=== PATIENT | female | born 1945 | race Caucasian/White ===

== ENCOUNTER 2025-02-23 18:12 | Inpatient (IN) | payer MEDICARE ==
[~2025-02-23] VITALS: Ht 152.4 cm; Wt 30.1 kg
[2025-02-23 19:28] LABS: PLATELET COUNT (AUTO) 214 K/uL (179-408); RED BLOOD CELL COUNT(AUTO) 3.51 MIL/uL (3.63-4.92); RED CELL DISTRIBUTION WIDTH 14.0 % (12.3-17.7); WHITE BLOOD COUNT (AUTO) 7.8 K/uL (3.8-11.8)
[2025-02-23] MEDS ORDERED: ASPI81TA31 PO (19:36)
[2025-02-23] MEDS ORDERED: QUET50TA PO (19:36)
[2025-02-23] MEDS ORDERED: HYDR-501 PO (19:36)
[2025-02-23] MEDS ORDERED: OLAN5TAB70 PO (19:36)
[2025-02-23] MEDS ORDERED: IBUP-1955 PO (19:36)
[2025-02-23] MEDS ORDERED: ATOR20TA PO (19:36)
[2025-02-23] MEDS ORDERED: TEMA15CA PO (19:36)
[2025-02-23 19:38] LABS: CREATININE 0.9 mg/dL (0.6-1.3); SODIUM SERUM 144 mmol/L (136-145); UREA NITROGEN, BLOOD 27 mg/dL (7-18)
[2025-02-23 19:44] LABS: ASPARTATE AMINOTRANSFERASE 18 U/L (15-37); TOTAL PROTEIN, SERUM 6.6 g/dL (6.4-8.2)
[2025-02-23] MEDS ORDERED: diphenhydrAMINE 50 MG/1 ML VIAL IM ONE (21:15)
[2025-02-23] MEDS ORDERED: OLANZAPINE 10 MG VIAL IM ONE ×2 (21:15→21:22)
[2025-02-23] MEDS ORDERED: diphenhydrAMINE 50 MG/1 ML VIAL ONE (21:21)
[2025-02-23] MEDS: diphenhydrAMINE 50 MG/1 ML VIAL IV ONE (21:31)
[2025-02-23] MEDS ORDERED: HALOPERIDOL LACTATE 5 MG/1 ML VIAL ONE (21:35)
[2025-02-23] MEDS: HALOPERIDOL LACTATE 5 MG/1 ML VIAL IV ONE (21:37)
[2025-02-23] MEDS ORDERED: MAGNESIUM HYDROXIDE 30 ML LIQUID UDC PO PRN (22:45)
[2025-02-23] MEDS ORDERED: TEMAZEPAM 15 MG CAPSULE PO PRN (22:45)
[2025-02-23] MEDS ORDERED: QUETIAPINE FUMARATE 25 MG TABLET ONE (23:57)
[2025-02-24] MEDS ORDERED: LORAZEPAM 2 MG/1 ML VIAL ONE (00:18)
[2025-02-24] MEDS ORDERED: HALOPERIDOL LACTATE 5 MG/1 ML VIAL ONE (00:23)
[2025-02-24] MEDS: LORAZEPAM 2 MG/1 ML VIAL IV ONE (00:30)
[2025-02-24] MEDS: HALOPERIDOL LACTATE 5 MG/1 ML VIAL IV ONE (00:30)
[2025-02-24 06:00] VITALS: BP 140/76
[2025-02-24 07:30] LABS: PLATELET COUNT (AUTO) 252 K/uL (179-408); RED BLOOD CELL COUNT(AUTO) 4.16 MIL/uL (3.63-4.92); RED CELL DISTRIBUTION WIDTH 13.8 % (12.3-17.7); WHITE BLOOD COUNT (AUTO) 12.7 K/uL (3.8-11.8)
[2025-02-24 07:53] LABS: IRON, SERUM 47 ug/dL (50-175)
[2025-02-24 08:11] LABS: ASPARTATE AMINOTRANSFERASE 23 U/L (15-37); CREATININE 0.7 mg/dL (0.6-1.3); SODIUM SERUM 141 mmol/L (136-145); TOTAL PROTEIN, SERUM 7.9 g/dL (6.4-8.2); UREA NITROGEN, BLOOD 22 mg/dL (7-18)
[2025-02-24 09:19] VITALS: BP 134/74; TEMP 98.4; O2SAT 98
[2025-02-24] MEDS: ASPIRIN 81 MG TAB.CHEW PO SCH (09:20)
[2025-02-24] MEDS: OLANZAPINE 10 MG VIAL IM PRN (09:39)
[2025-02-24 11:07] VITALS: BP 156/83; TEMP 98.8; O2SAT 96
[2025-02-24] MEDS ORDERED: HYDR10SY16 PO (14:27)
[2025-02-24] MEDS ORDERED: HYDR10TA37 PO (14:28)
[2025-02-24 20:00] VITALS: BP 164/83; TEMP 96.8; O2SAT 98
[2025-02-24] MEDS: QUETIAPINE FUMARATE 25 MG TABLET PO SCH ×2 (20:48)
[2025-02-24] MEDS: DOCUSATE SODIUM 100 MG CAPSULE PO SCH (20:48)
[2025-02-24] MEDS: ATORVASTATIN 20 MG TABLET PO SCH (20:48)
[2025-02-25] MEDS: TEMAZEPAM 7.5 MG CAPSULE PO PRN (01:45)
[2025-02-25 05:00] VITALS: BP 114/64; TEMP 97.7; O2SAT 99
[2025-02-25 07:37] LABS: PLATELET COUNT (AUTO) 269 K/uL (179-408); RED BLOOD CELL COUNT(AUTO) 4.04 MIL/uL (3.63-4.92); RED CELL DISTRIBUTION WIDTH 14.2 % (12.3-17.7); WHITE BLOOD COUNT (AUTO) 8.7 K/uL (3.8-11.8)
[2025-02-25 07:52] LABS: CREATININE 0.6 mg/dL (0.6-1.3); SODIUM SERUM 141 mmol/L (136-145); UREA NITROGEN, BLOOD 26 mg/dL (7-18)
[2025-02-25 09:04] VITALS: BP 116/59; TEMP 98; O2SAT 99
[2025-02-25 10:36] LABS: *BILIRUBIN,URIN NEGATIVE (NEGATIVE); *CLARITY,URINE CLEAR (CLEAR); *COLOR,URINE YELLOW (YELLOW); *KETONES,URINE NEGATIVE (NEGATIVE); *PROTEIN,URINE NEGATIVE (NEGATIVE); *UROBILINOGEN,URINE 0.2 E.U./dl (NORMAL); LEUKOCYTE ESTERASE ,URINE NEGATIVE (NEGATIVE); NITRITE, URINE NEGATIVE (NEGATIVE); UGLUCOSE NEGATIVE (NEGATIVE)
[2025-02-25 10:53] LABS: *BLOOD, URINE TRACE (NEGATIVE)
[2025-02-25 10:55] VITALS: BP 109/64; TEMP 97.7; O2SAT 97
[2025-02-25 11:01] LABS: SQUAMOUS EPITHELIAL CELL,UR FEW /HPF (NONE SEEN)
[2025-02-25] MEDS ORDERED: OLANZAPINE 10 MG VIAL IM PRN (11:45)
[2025-02-25 15:23] VITALS: BP 123/75; TEMP 97.5; O2SAT 99
[2025-02-25 19:00] VITALS: BP 134/72; TEMP 97.6; O2SAT 97
[2025-02-25] MEDS: QUETIAPINE FUMARATE 25 MG TABLET PO SCH (20:43)
[2025-02-26 04:00] VITALS: BP 104/52; TEMP 97.7; O2SAT 96
[2025-02-26] MEDS ORDERED: QUETIAPINE FUMARATE 25 MG TABLET PO PRN (08:15)
[2025-02-26] MEDS: CYANOCOBALAMIN 1000 MCG/ML VIAL IM ONE (10:45)
[2025-02-26 11:09] VITALS: BP 131/71; TEMP 98.4; O2SAT 98
[2025-02-26] MEDS: METOPROLOL TARTRATE 25 MG TABLET PO SCH (11:39)
[2025-02-26] MEDS: QUETIAPINE FUMARATE 25 MG TABLET PO PRN (16:18)
[2025-02-26] MEDS: ACETAMINOPHEN 325 MG TABLET PO PRN (20:15)
[2025-02-26] MEDS: QUETIAPINE FUMARATE 25 MG TABLET PO SCH (20:15)
[2025-02-26 22:04] VITALS: BP 132/59; TEMP 97.2; O2SAT 98
[2025-02-27] VITALS (9 sets, daily range): BP systolic 137–199; BP diastolic 58–94; TEMP 97.4–98; O2SAT 96–99
[2025-02-27] MEDS: AMLODIPINE 5 MG TABLET PO ONE (15:55)
[2025-02-27] MEDS: OLANZAPINE 10 MG VIAL IM PRN (16:55)
[2025-02-27] MEDS ORDERED: CLONIDINE-TTS 1 PATCH TD ONE (21:53)
[2025-02-27] MEDS: CLONIDINE-TTS 1 PATCH TD SCH (22:14)
[2025-02-28 05:49] VITALS: BP 130/72; TEMP 98; O2SAT 93
[2025-02-28 07:07] LABS: PLATELET COUNT (AUTO) 294 K/uL (179-408); RED BLOOD CELL COUNT(AUTO) 4.26 MIL/uL (3.63-4.92); RED CELL DISTRIBUTION WIDTH 13.7 % (12.3-17.7); WHITE BLOOD COUNT (AUTO) 7.0 K/uL (3.8-11.8)
[2025-02-28 07:49] LABS: ASPARTATE AMINOTRANSFERASE 24 U/L (15-37); CREATININE 0.5 mg/dL (0.6-1.3); SODIUM SERUM 140 mmol/L (136-145); TOTAL PROTEIN, SERUM 6.7 g/dL (6.4-8.2); UREA NITROGEN, BLOOD 23 mg/dL (7-18)
[2025-02-28] MEDS: AMLODIPINE 5 MG TABLET PO SCH (08:50)
[2025-02-28 11:30] VITALS: BP 120/59; TEMP 97.8; O2SAT 96
[2025-02-28 15:43] VITALS: BP 139/73; TEMP 98.6; O2SAT 98
[2025-02-28 21:48] VITALS: BP 159/81; TEMP 97.6; O2SAT 99
[2025-03-01 06:24] VITALS: BP 155/69; TEMP 98; O2SAT 99
[2025-03-01 07:23] LABS: PLATELET COUNT (AUTO) 257 K/uL (179-408); RED BLOOD CELL COUNT(AUTO) 4.33 MIL/uL (3.63-4.92); RED CELL DISTRIBUTION WIDTH 14.0 % (12.3-17.7); WHITE BLOOD COUNT (AUTO) 7.5 K/uL (3.8-11.8)
[2025-03-01 07:46] LABS: CREATININE 0.6 mg/dL (0.6-1.3); SODIUM SERUM 142 mmol/L (136-145); UREA NITROGEN, BLOOD 35 mg/dL (7-18)
[2025-03-01 12:00] VITALS: BP 128/60; TEMP 97.2; O2SAT 98
[2025-03-01] MEDS ORDERED: CLON1PAT TD (13:12)
[2025-03-01] MEDS ORDERED: METO25TA6 PO (13:12)
[2025-03-01] MEDS ORDERED: AMLO-212 PO (13:12)
[2025-03-01 15:51] VITALS: BP 132/61; TEMP 98; O2SAT 97
[2025-03-06] MEDS ORDERED: CLONIDINE-TTS 1 PATCH TD SCH (21:00)
== END 2025-03-01 16:05 | DRG 92 ==
LOC: ER 19:00 → MEDSURG3 02-24 07:52
PROVIDERS: ADMIT Internal Medicine; ATTEND Internal Medicine
DX: G92.8 Other toxic encephalopathy (principal); D68.59 Other primary thrombophilia; E44.0 Moderate protein-calorie malnutrition; K92.2 Gastrointestinal hemorrhage, unspecified; F02.811 Dementia in other diseases classified elsewhere, unspecified severity, with agitation; I67.82 Cerebral ischemia; Z78.1 Physical restraint status; C80.1 Malignant (primary) neoplasm, unspecified; D64.9 Anemia, unspecified; I11.9 Hypertensive heart disease without heart failure; F03.911 Unspecified dementia, unspecified severity, with agitation; F03.92 Unspecified dementia, unspecified severity, with psychotic disturbance; Z68.1 Body mass index [BMI] 19.9 or less, adult; R62.7 Adult failure to thrive; R63.4 Abnormal weight loss; F03.90 Unspecified dementia, unspecified severity, without behavioral disturbance, psychotic disturbance, mood disturbance, and anxiety; E78.5 Hyperlipidemia, unspecified; R97.0 Elevated carcinoembryonic antigen [CEA]; E53.8 Deficiency of other specified B group vitamins; Z74.09 Other reduced mobility; M81.0 Age-related osteoporosis without current pathological fracture; M15.9 Polyosteoarthritis, unspecified; R94.31 Abnormal electrocardiogram [ECG] [EKG]; Z79.899 Other long term (current) drug therapy; N32.89 Other specified disorders of bladder; G31.9 Degenerative disease of nervous system, unspecified
CPT/HCPCS: 36415; 70450; 71045; 82378; 83550; 83605; 83735; 84100; 84443; 84484; 85025; 87040; 87086; 93307; 97535-GO-CO; A4606; A4663; C1758; G0378; J0360; J1200; J1630; J2060; J2358; J3420; J7040